=== PATIENT | male | born 1995 | race Caucasian/White ===

== ENCOUNTER 2025-02-22 10:13 | Emergency (ER) | payer OTHER, SELFPAY ==
[2025-02-22 10:19] VITALS: BP 130/98
--- NOTE | 2025-02-22 11:40 | ED.GENMED ---
History of Present Illness
General
Chief Complaint: Musculo-Skeletal Complaint
Source: patient
Time Seen by Provider: 02/22/25 11:32
History of Present Illness
History of Present Illness:
29-year-old male with no significant past medical history presenting to the emergency department for evaluation after he excellently dropped an approximate 200 pound stone on his right foot noting pain and swelling as well as some mild ecchymosis
over the dorsal aspect of the foot. Patient unable to ambulate secondary to the pain. No other injuries were sustained. Denies any history of injury or surgery.
Past History
Past History
ED Past Medical History: Other (Back pain, umbilical hernia)
ED Past Surgical History: None
Patient has exhibited threatening behavior?: No
PSI?: No
Social History
Tobacco: Non-smoker
Alcohol: Occasional
Drug: None
Personal: Single
Living: with family
Employment: Employed
Review of Systems
Review of Systems
All Other Systems: ROS reviewed and negative except as documented in HPI and ROS
Phy Exam
Physical Exam
Physical Exam:
GENERAL: Alert , in no apparent distress
EYE: conjunctiva clear
Head: Normocephalic atraumatic
NECK: Supple,
ENT: mmm.
LUNGS: no acute respiratory distress
NEUROLOGICAL: Alert and oriented
SKIN: Warm and dry, skin intact.
MUSCULOSKELETAL: Right foot and ankle: There is mild soft tissue swelling along the mid foot overlying the 2nd through 4th metatarsal, ecchymosis within this area. Easily palpable pedal and tibial pulse. Cap refill less than 2 seconds. Sensation
grossly intact to light touch.
PSYCH: Normal and appropriate interaction.
Scores
Heart Failure Risk
Heart Failure Risk Score: Not Applicable
Heart Score for Chest Pain Patients
STEMI patient?: Not applicable
Withdrawal Assessment of Alcohol
Withdrawal Assessment Completed?: Not applicable
Course
Orders/Labs/Results
Orders:
Orders
02/22/25 10:23
Ankle, Right 3 view CR [CR Ankle - Right Min 3 Views *] Urgent
Comment:
Reason For Exam: injury
02/22/25 10:24
Foot, Right 3 View [CR Foot - Right Min 3 Views] Urgent
Comment:
Reason For Exam: pain, injury
02/22/25 11:50
Crutches-Treatment ONCE
boot [Ortho Boot Right- Treatment] ONCE
Short or tall?: Tall
02/22/25 11:55
Ibuprofen [Motrin] 600 mg PO NOW STA
Oxycodone/Acetaminophen [Percocet 5/325] 1 tablet PO NOW STA
Vital Signs
Initial and Last Documented VS:
Initial Vital Signs
Temp Pulse Resp BP Pulse Ox
97.8 F 72 16 130/98 100
02/22/25 10:19 02/22/25 10:19 02/22/25 10:19 02/22/25 10:19 02/22/25 10:19
Last Documented Vital Signs
Temp Pulse Resp BP Pulse Ox
97.8 F 72 16 130/98 100
02/22/25 10:19 02/22/25 10:19 02/22/25 10:19 02/22/25 10:19 02/22/25 11:48
MDM/Problems Addressed
Differential Diagnosis Includes:
Fracture
Contusion
Sprain
MDM/Problems Addressed:
29-year-old male presenting to the ER for evaluation after injuring his right foot when he dropped a heavy stone on the foot while at work. X-ray of the foot reveals a 2nd through 5th metatarsal fracture. Discussed with orthopedics, will place in
a tall boot, crutches, weightbearing as tolerated, outpatient follow-up recommended. Otherwise stable for discharge home.
*Radiology
Radiology exam reviewed: preliminary read by ED provider ( 2nd through 5th metatarsal fracture)
*Pulse Oximetry
SaO2: 100
Oxygen Mode of Delivery: Room air
Patient hypoxic: no
*Critical Care Note
Total Time (30-74mins, 75-104mins- exclusive of procedures): Not Applicable
Patient Management
Discussion with other providers: [employer]
ED Attending Note
-
Portions of this chart may have been created with voice recognition software.� Occasional wrong word or��sound alike� substitutions may have occurred due to the inherent limitations of voice recognition software.
Discharge Plan
Departure
Patient Disposition: Home (Routine Discharge)
Date of Disposition: 02/22/25
Time of Disposition: 11:40
Patient with high blood pressure during this ER visit?: Yes
Discharge Problem:
Fracture of second metatarsal bone of right foot, Fracture of third metatarsal bone of right foot, Fracture of fourth metatarsal bone of right foot, Fracture of fifth metatarsal bone of right foot
Instructions: Heel or foot fracture
Prescriptions:
New
oxycodone-acetaminophen [Percocet] 5-325 mg tablet
1 tab PO Q6HPRN PRN (Reason: pain) Qty: 10 0RF
No Action
Tylenol Childrens
2 tab PO Q4H PRN (Reason: pain)
methylprednisolone [Medrol (Bradley)] 4 MG tablets,dose pack
4 tab PO . DIRECT Qty: 1 0RF
Referrals:
Ishmael Link DPM [Active, Podiatry]
Interventions
Interventions:
*Risk Screen - Suicide (C-SSRS) Last Done: 02/22/25 10:19
*Nursing Disposition Last Done: 02/22/25 12:19
ED-Musculoskeletal Assessment Last Done: 02/22/25 12:17
Discharge Date and Time
Print Language: SWEDISH
[2025-02-22] MEDS: MOTRIN 600 MG PO (12:13)
[2025-02-22] MEDS: PERCOCET 5/325 1 TABLET PO (12:13)
== END 2025-02-22 12:19 | disposition home or self-care (01) ==
LOC: EMR 10:13
PROVIDERS: EMERGENCY PHYSICIAN Student in an Organized Health Care Education/Training Program; FAMILY PHYSICIAN Family Medicine
DX: S92.321A Displaced fracture of second metatarsal bone, right foot, initial encounter for closed fracture (principal); S92.331A Displaced fracture of third metatarsal bone, right foot, initial encounter for closed fracture; S92.341A Displaced fracture of fourth metatarsal bone, right foot, initial encounter for closed fracture; S92.351A Displaced fracture of fifth metatarsal bone, right foot, initial encounter for closed fracture; W20.8XXA Other cause of strike by thrown, projected or falling object, initial encounter; Y99.0 Civilian activity done for income or pay
CPT/HCPCS: 99283; 73610; 73630